=== PATIENT | male | born 1935 | race Caucasian/White ===

== ENCOUNTER → 2017-04-15 | Outpatient (CLI) | payer OTHER ==
--- NOTE | 2017-04-15 09:26 | REP ---
PA and lateral chest: Comparison is 10/08 2005. There are no focal infiltrates or effusions. There is chronic interstitial coarsening compatible with chronic interstitial lung disease. There is pleural thickening along the left lateral chest wall, decreased from the prior study. There is pleural thickening of the major fissure on the lateral view. This is also unchanged. 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 Cardiac size is normal. The hetal, mediastinum, and bony thorax are unremarkable. Impression: There are chronic findings as described. Chronic pleural thickening in the left hemithorax as described, likely fibrosis. There are no acute cardiopulmonary findings. Signed by Gerson Pleitez MD 04/15/2017 09:18 A
== END ==
LOC: M SMT 08:08
PROVIDERS: ATTEND Internal Medicine Pulmonary Disease
DX: J44.9 Chronic obstructive pulmonary disease, unspecified (principal)